=== PATIENT | female | born 1970 | race Hispanic/Latino ===

== ENCOUNTER 2017-10-09 20:21 | Emergency (ER) | payer MEDICARE, OTHER ==
[~2017-10-09] VITALS: Ht 180.3 cm; Wt 113.4 kg
[2017-10-09] MEDS ORDERED: METOPROLOL SUCC50 MG PO (21:01)
[2017-10-09] MEDS ORDERED: LEVEMIR100 UNIT/1 SC (21:01)
[2017-10-09] MEDS ORDERED: HYDRALAZINE HCL25 MG PO (21:01)
[2017-10-09] MEDS ORDERED: VERAPAMIL ER120 MG PO (21:01)
[2017-10-09 22:03] VITALS: BP 154/101
== END 2017-10-09 21:34 | disposition home or self-care (01) ==
LOC: FSED 20:21
DX: R06.09 Other forms of dyspnea (principal); R05 Cough; J20.9 Acute bronchitis, unspecified; E11.9 Type 2 diabetes mellitus without complications; I10 Essential (primary) hypertension; D64.9 Anemia, unspecified
CPT/HCPCS: 71045; 99283

== ENCOUNTER → 2019-10-22 | Day surgery (SDC) | payer MEDICARE, OTHER ==
[~2019-10-22] MED LIST: ATORVASTATIN CA20 MG PO; CLONIDINE HCL0.1 MG PO; FENTANYL CITRATE/PF 100MCG/2 ML INJ ONE; HUMALOG100 UNIT/1 SQ; HYDRALAZINE HCL25 MG PO; HYOSCYAMINE 0.125 MG TAB ONE; LEVEMIR100 UNIT/1 SC; LISINOPRIL10 MG PO; LORAZEPAM2 MG/1 M1 PO; METOPROLOL SUCC50 MG PO; MIDAZOLAM HCL 2 MG/2 ML VIAL ONE; PROPOFOL IV EMULSION 10 MG/ML 20 ML VIAL ONE; SODIUM CHLORIDE 0.9% 500ML 500 ML ONE; VELPHORO500 MG PO; VERAPAMIL ER120 MG PO
--- OUTSIDE RECORDS SUMMARY | 2019-10-22 11:04 | XMS REPORT | Clinical Summary ---
Author Author [facility] Address Unknown Phone Unavailable Care Team Providers Care Stumper Feller Name Role Phone PCP Unavailable Allergies Comments Active Allergy Reactions Severity Noted Date Morphine 02/24/2017 Promethazine 02/24/2017 Medications Not on file Active Problems Not on file Social History Date Tobacco Use Types Packs/Day Years Used Never Smoker Smokeless Tobacco: Never Used Sex Assigned at Date Recorded Not on file Industry Job Start Date Occupation Not on file Not on file Not on file Travel End Travel History Travel Start No recent travel history available. Last Filed Vital Signs Not on file Plan of Treatment Not on file Results Not on fileafter 10/21/2018 Insurance Payer Benefit Subscriber ID Type Phone Address Plan / Group MEDICARE MEDICARE A xxxxxxxxxxx Medicare B [id number]
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
[2019-10-22 14:05] VITALS: BP 133/66
--- NOTE | 2019-10-22 19:35 | Operative Report ---
DATE OF PROCEDURE: 10/22/2019 SURGEON: Jose Garnica MD PROCEDURES: EGD with polypectomy and biopsies and colonoscopy with polypectomy. INDICATIONS FOR EGD: Upper abdominal pain, nausea, and vomiting. INDICATION FOR COLONOSCOPY: New onset constipation. MEDICATIONS: The patient was done under MAC, please see anesthesiologist's note. PROCEDURE IN DETAIL: With the patient in the left lateral decubitus position, a flexible fiberoptic Olympus gastroscope was passed into the esophagus under direct vision without any difficulty. There was a minute nodule noted in the cervical esophagus, that was biopsied. Some patchy erythema was noted in the distal esophagus. The scope was then advanced with ease into the stomach. Mucosa overlying the antrum and the body revealed some patchy erythema and [id number] edema. Biopsies were obtained, sent to stain for H. pylori. There was a minute polyp, hyperplastic appearing in the distal body, was partially excised with cold biopsy forceps. The pylorus was of normal contour and shape, it was intubated with ease and the scope was advanced all the way to the second portion of the duodenum. Biopsies were obtained from the proximal second portion and the duodenal bulb to rule out sprue. A minute nodule was biopsied from the distal bulb. The scope was then withdrawn back into the stomach and retroflexed mucosa overlying the fundus and the cardia appeared to be within normal limits. The scope was then straightened out, it was subsequently withdrawn. The patient tolerated the procedure well. IMPRESSION: 1. Nodule cervical esophagus, biopsied. 2. Gastritis, biopsied, biopsies sent to stain for H. pylori. 3. Gastric polyp, distal body, partially excised with the cold biopsy forceps. 4. Rule out sprue. 5. Duodenal nodule, biopsied. PLAN: 1. Follow up histology. 2. Initiate Protonix 40 mg one p.o. q.a.m. a.c. DESCRIPTION OF PROCEDURE: The patient was then turned around after adequate lubrication of the anal canal, a flexible fiberoptic Olympus colonoscope was inserted into the rectum with ease and advanced all the way to the cecum. Diverticulosis was noted throughout the colon. One polyp was hot snared from the proximal ascending colon and there was an additional polyp was hot biopsied from the ascending colon. One polyp was hot biopsied from the transverse colon. Three polyps were hot snared from the descending colon. The mucosa overlying the sigmoid and the rectum grossly appeared to be within normal limits. The scope was then retroflexed into the distal rectum. Small internal hemorrhoids were noted, none of which was actively bleeding. The scope was then straightened out, it was subsequently withdrawn. The patient tolerated the procedure well. IMPRESSION: 1. Pandiverticulosis. 2. Ascending colon polyps x2, one hot snared and one cold biopsied. 3. Transverse colon polyp, hot biopsied. 4. Descending colon polyps x3, hot snared. 5. Internal hemorrhoids, none actively bleeding. PLAN: 1. Follow up histology. 2. Initiate high-fiber, low-fat diet. 3. Initiate high-fiber supplement. 4. Start VSL #3 one p.o. b.i.d. 5. The patient might benefit from a followup colonoscopy in 3 years. Jose Garnica MD [facility] [place] [place] /[id number] cc: Luis Angel Garnica MD
== END | disposition home or self-care (01) ==
LOC: OR 11:01
PROVIDERS: ATTEND Internal Medicine Gastroenterology
DX: K59.00 Constipation, unspecified (principal); D12.3 Benign neoplasm of transverse colon; D12.4 Benign neoplasm of descending colon; K31.7 Polyp of stomach and duodenum; K29.70 Gastritis, unspecified, without bleeding; B96.81 Helicobacter pylori [H. pylori] as the cause of diseases classified elsewhere; K29.80 Duodenitis without bleeding; K22.8 Other specified diseases of esophagus; K21.9 Gastro-esophageal reflux disease without esophagitis; K31.89 Other diseases of stomach and duodenum; K57.30 Diverticulosis of large intestine without perforation or abscess without bleeding; K64.8 Other hemorrhoids; E11.22 Type 2 diabetes mellitus with diabetic chronic kidney disease; I12.0 Hypertensive chronic kidney disease with stage 5 chronic kidney disease or end stage renal disease; N18.6 End stage renal disease; F41.9 Anxiety disorder, unspecified; Z88.6 Allergy status to analgesic agent; Z88.8 Allergy status to other drugs, medicaments and biological substances; Z01.810 Encounter for preprocedural cardiovascular examination; Z01.812 Encounter for preprocedural laboratory examination; Z11.59 Encounter for screening for other viral diseases; Z79.4 Long term (current) use of insulin; Z99.2 Dependence on renal dialysis; Z68.35 Body mass index [BMI] 35.0-35.9, adult; Z80.0 Family history of malignant neoplasm of digestive organs
CPT/HCPCS: 36415; 43239; 45380; 45384; 45385; 82948; 84132; 87635; 93005; J2250; J2704; J3010; J7040

== ENCOUNTER 2020-12-12 13:04 | Emergency (ER) | payer MEDICARE, OTHER ==
[~2020-12-12] VITALS: Ht 180.3 cm; Wt 110.2 kg
[~2020-12-12 13:04] MED LIST changes: -FENTANYL CITRATE/PF 100MCG/2 ML INJ ONE; -HYOSCYAMINE 0.125 MG TAB ONE; -MIDAZOLAM HCL 2 MG/2 ML VIAL ONE; -PROPOFOL IV EMULSION 10 MG/ML 20 ML VIAL ONE; -SODIUM CHLORIDE 0.9% 500ML 500 ML ONE
[2020-12-12] MEDS ORDERED: SODIUM CHLORIDE 0.9% 1000ML 1,000 ML IV SCH (16:00)
[2020-12-12] MEDS ORDERED: SODIUM CHLORIDE 0.9% 500ML 500 ML ONE (16:19)
[2020-12-12] MEDS ORDERED: SODIUM CHLORIDE 0.9% 50ML 50 ML ONE (17:59)
[2020-12-12] MEDS ORDERED: IOPAMIDOL 370 MG/ML 200 ML INFUS..BTL INJ ONE (18:00)
[2020-12-12] MEDS ORDERED: CEFTRIAXONE 1 GM in SODIUM CHLORIDE 0.9% 50ML 50 ML IV SCH (18:00)
[2020-12-12] MEDS ORDERED: CEFTRIAXONE 1 GM VIAL ONE (18:13)
[2020-12-12] MEDS ORDERED: CEFDINIR300 MG PO (19:36)
[2020-12-12 19:39] VITALS: BP 167/85
== END 2020-12-12 19:47 | disposition home or self-care (01) ==
LOC: FSED 15:30
DX: N30.01 Acute cystitis with hematuria (principal); R19.7 Diarrhea, unspecified; T36.1X5A Adverse effect of cephalosporins and other beta-lactam antibiotics, initial encounter; I12.0 Hypertensive chronic kidney disease with stage 5 chronic kidney disease or end stage renal disease; E11.22 Type 2 diabetes mellitus with diabetic chronic kidney disease; N18.6 End stage renal disease; Z99.2 Dependence on renal dialysis
CPT/HCPCS: 74177; 80048; 80076; 81003; 85025; 87086; 96374; 96376; 99284; J0696; J7040; Q9967